=== PATIENT | female | born 1965 | race Caucasian/White ===

== ENCOUNTER 2017-12-10 06:18 | Emergency (ER) | payer BC ==
--- NOTE | 2017-12-10 07:13 | ED ---
General Adult HPI - General Chief complaint: Recheck/Abnormal Lab/Rx Stated complaint: hypertension Time Seen by Provider: 12/10/17 06:48 Source: patient Mode of arrival: ambulatory Limitations: no limitations - History of Present Illness Initial comments: 52 years old female came in now to follow-up on her blood pressure she seen her family doctor blood pressure log she brought with her still showing some elevation or elevated systolic blood pressure ranging from 170 to 160s systolic. There was a question of some ALLERGIC reaction to her lisinopril INR Zithromax she stopped taking her lisinopril and Zithromax she was also supposed to take hydrochlorothiazide she wasn't quite sure if she should or if she should. She had some bronchitis-like picture and she been coughing bringing up some phlegm she is a lot better then weeks before area she denies any headaches no neck stiffness no chest pain no shortness of breath no pleuritic chest pain - Related Data Home Medications Medication Instructions Recorded Confirmed Cholecalciferol [Vitamin D3] 1,000 unit PO DAILY 04/15/16 06/04/16 Ferrous Sulfate [Feosol] 325 mg PO DAILY 04/15/16 06/04/16 HYDROcodone/APAP 5-325MG [[place] 1 - 2 tab PO Q6H PRN 06/04/16 06/04/16 5-325] Multivitamins, Thera [Multivitamin] 1 tab PO DAILY 06/04/16 06/04/16 Vitamin B Complex 1 cap PO DAILY 06/04/16 06/04/16 Previous Rx's Medication Instructions Recorded amLODIPine BESYLATE [Norvasc] 5 mg PO DAILY #30 tablet 12/10/17 Allergies Allergy/AdvReac Type Severity Reaction Status Date / Time No Known Allergies Allergy Verified 12/10/17 06:29 Review of Systems ROS Statement: Those systems with pertinent positive or pertinent negative responses have been documented in the HPI. ROS Other: All systems not noted in ROS Statement are negative. Past Medical History Past Medical History: Respiratory Disorder Additional Past Medical History / Comment(s): shingles - lt chest - Apr 2015, SOB since shingles. investigating lung mass-March 2016. joint pain History of Any Multi-Drug Resistant Organisms: None Reported Past Surgical History: Section Additional Past Surgical History / Comment(s): wisdom teeth extraction, left lower lobectomy Past Anesthesia/Blood Transfusion Reactions: No Reported Reaction Past Psychological History: No Psychological Hx Reported Smoking Status: Former smoker Past Alcohol Use History: Rare Past Drug Use History: None Reported - Past Family History Father Family Medical History: No Reported History General Exam - General Exam Comments Initial Comments: General: The patient is awake and alert, in no distress, and does not appear acutely ill. Skin: Skin is warm and dry and no rashes or lesions are noted. Eye: Pupils are equal, round and reactive to light, extra-ocular movements are intact; there is normal conjunctiva bilaterally. Ears, nose, mouth and throat: There are moist mucous membranes and no oral lesions. Neck: The neck is supple, there is no tenderness or JVD. Cardiovascular: There is a regular rate and rhythm. No murmur, rub or gallop is appreciated. Respiratory: To auscultation bilateral, no wheezing no rhonchi no distress respiratory fields noticed Gastrointestinal: Soft, non-distended, non-tender abdomen without masses or organomegaly noted. There is no rebound or guarding present. Bowel sounds are unremarkable. Back: There is no tenderness to palpation in the midline. There is no obvious deformity. Musculoskeletal: Normal ROM, no tenderness, There is no pedal edema. There is no calf tenderness or swelling. No cords were appreciated. Neurological: CN II-XII intact, Cranial nerves III through XII are intact. There are no obvious motor or sensory deficits. Coordination appears grossly intact. Speech is normal. Psychiatric: Cooperative, appropriate mood & affect, normal judgment. Limitations: no limitations Course Vital Signs 12/10/17 12/10/17 06:20 06:44 Temperature 98.3 F Pulse Rate 92 80 Respiratory 18 16 Rate Blood Pressure 182/87 167/79 O2 Sat by Pulse 100 100 Oximetry Considering the possibility of sensitivity to lisinopril we will stop the lisinopril, had a long discussion with the patient controlling the blood pressure would take some time to get up slowly right and was started on on her Norvasc 5 mg by mouth daily she will also continue her hydrochlorothiazide 25 Disposition Clinical Impression: Hypertension Disposition: HOME SELF-CARE Condition: Good Instructions: Hypertension (ED) Prescriptions: amLODIPine BESYLATE [Norvasc] 5 mg PO DAILY #30 tablet Referrals: Nae Bocanegra DO [Primary Care Provider] - 1-2 days
[2017-12-10 07:56] VITALS: BP 157/91; PULSE 75; RESP 18; TEMP 97.8
== END 2017-12-10 07:53 | disposition home or self-care (01) ==
LOC: EC 06:18
DX: I10 Essential (primary) hypertension (principal); R05 Cough; Z87.891 Personal history of nicotine dependence; Z79.899 Other long term (current) drug therapy
CPT/HCPCS: 99283